=== PATIENT | female | born 1970 | race African-American/Black ===

== ENCOUNTER → 2016-06-16 | Outpatient (CLI) | payer BC ==
[~2016-06-16] MED LIST: AZITTAB PO; IBUP-1050 PO; LOESTRIN; PTU50 PO
--- NOTE | 2016-06-16 15:31 | DIAGNOSTIC IMAGING REPORT ---
Venous Doppler left leg VENOUS DOPP LOWER EXT UNILAT CLINICAL HISTORY: LEFT LEG PAIN AND SWELLING R/O DVT pain. Edema. TECHNIQUE: Doppler ultrasound COMPARISON STUDY: None FINDINGS: Study is positive for deep venous thrombosis involving left superficial femoral vein at its distal aspect. There is also involvement of the popliteal and peroneal veins. Compressibility is incomplete. Thrombus formation is nonocclusive. IMPRESSION: Findings of acute deep venous thrombosis involving the distal left thigh and lower leg Electronically signed by: Damon Vera M.D. 06/16/2016 3:29 PM Dictated Date/Time: 06/16/2016 3:28 PM
== END | disposition home or self-care (01) ==
LOC: C.ULTR 14:38
PROVIDERS: ATTEND Podiatrist Foot & Ankle Surgery
DX: I87.2 Venous insufficiency (chronic) (peripheral) (principal); I82.4Y2 Acute embolism and thrombosis of unspecified deep veins of left proximal lower extremity; I82.4Z2 Acute embolism and thrombosis of unspecified deep veins of left distal lower extremity

== ENCOUNTER → 2016-06-16 | Outpatient (CLI) | payer BC ==
[2016-06-16 19:38] LABS: BASO % 0.5 %; BASO ABS # 0.02 K/uL (0-0.2); EOS % 4.6 %; LYMPH % 26.2 %; LYMPH ABS # 1.13 K/uL (1.2-3.4); MEAN CELL VOLUME 81.9 fL (80-100); MEAN CORPUSCULAR HEMOGLOBIN 27.8 pg (25-34); MEAN PLATELET VOLUME 10.4 fL (7.4-10.4); NEUT % 59.7 %; PLATELET COUNT 169 K/uL (130-400); RED BLOOD COUNT 4.64 M/uL (4.2-5.4); WHITE BLOOD COUNT 4.31 K/uL (4.8-10.8)
[2016-06-16 19:48] LABS: PARTIAL THROMBOPLASTIN RATIO 1.1; PROTHROMBIN TIME (PATIENT) 11.2 SECONDS (9.0-12.0)
[2016-06-16 20:20] LABS: COMPLETE YES; MEAN CORPUSCULAR HGB CONC 33.9 g/dl (32-36)
[2016-06-16 20:21] LABS: ALB/GLOB RATIO 0.8 (0.9-2); ALKALINE PHOSPHATASE 57 U/L (45-117); ALT/SGPT 19 U/L (12-78); AST/SGOT 28 U/L (15-37); BLOOD UREA NITROGEN 11 mg/dl (7-18); CALCIUM 8.7 mg/dl (8.5-10.1); CARBON DIOXIDE 24 mmol/L (21-32); CHLORIDE 106 mmol/L (98-107); GLUCOSE 83 mg/dl (70-99); POTASSIUM 3.9 mmol/L (3.5-5.1); SODIUM 139 mmol/L (136-145)
[2016-06-21 18:39] LABS: ANTITHROMBINIII ACTIVITY** 101 % activity (80-120); B2 GLYCOPROTEIN IGA <9 SAU (<=20); B2 GLYCOPROTEIN IGG <9 SGU (<=20); B2 GLYCOPROTEIN IGM <9 SMU (<=20); LUPUS ANTICOAGULANT** TC36573X Negative (Negative); PROTEIN C ACTIVITY** TC 1777X 92 % (70-180); PROTEIN S ACT(FUNCT)**1779X 46 % (60-140)
== END | disposition home or self-care (01) ==
LOC: C.LAB 19:08
PROVIDERS: ATTEND Family Medicine
DX: I82.402 Acute embolism and thrombosis of unspecified deep veins of left lower extremity (principal)

== ENCOUNTER → 2017-02-19 | Outpatient (CLI) | payer BC ==
--- NOTE | 2017-02-22 08:02 | MAMMOGRAPHY REPORT ---
BILATERAL DIGITAL SCREENING MAMMOGRAM TOMOSYNTHESIS WITH CAD: 02/19/2017 CLINICAL HISTORY: Routine screening. Patient has no complaints. TECHNIQUE: Breast tomosynthesis in addition to standard 2D mammography was performed. Current study was also evaluated with a Computer Aided Detection (CAD) system. COMPARISON: Comparison is made to exam dated: 12/17/2015 mammogram - [facility]. BREAST COMPOSITION: The tissue of both breasts is heterogeneously dense, which may obscure small mas ses. FINDINGS: No suspicious masses, calcifications, or areas of architectural distortion are noted in ei ther breast. There has been no significant interval change compared to prior exams. IMPRESSION: ACR BI-RADS CATEGORY 1: NEGATIVE There is no mammographic evidence of malignancy. A 1 year screening mammogram is recommended. The pa tient will receive written notification of the results. Approximately 10% of breast cancers are not detected with mammography. A negative mammographic report should not delay biopsy if a clinically suggestive mass is present. Rebecca Medley M.D. ah/:02/19/2017 16:20:37 Country Manager: Prerna Walsh, M, [facility] letter sent: Normal 1/2 BI-RADS Code: ACR BI-RADS Category 1: Negative
== END | disposition home or self-care (01) ==
LOC: C.MAMM 13:09
PROVIDERS: ATTEND Family Medicine
DX: Z12.31 Encounter for screening mammogram for malignant neoplasm of breast (principal)